=== PATIENT | female | born 1965 | race Caucasian/White ===

== ENCOUNTER → 2017-05-21 14:38 | Outpatient (CLI) | payer MEDICAID ==
[2017-05-21 17:28] LABS: CREATININE - SERUM 1.9 mg/dL (0.6-1.3); VANCOMYCIN - TROUGH 7.2 ug/mL (10.0-20.0)
== END | disposition home or self-care (01) ==
LOC: D.LABREF 14:38
PROVIDERS: Orthopaedic Surgery
DX: Z79.2 Long term (current) use of antibiotics (principal)

== ENCOUNTER → 2017-08-08 14:11 | Outpatient (CLI) | payer MEDICAID ==
[2017-08-08 15:26] LABS: BASOPHILS 0.6 % (0-2); EOSINOPHILS 0.9 % (0-7); HEMATOCRIT 36.4 % (36.0-48.0); IMMATURE GRANULOCYTES 0.1 % (0-5); LYMPHOCYTES 28.1 % (15-50); MCH 26.3 pg (26.0-34.0); MCHC 30.2 g/dL (31.0-37.0); MCV 87.1 fL (80.0-100.0); MEAN PLATELET VOLUME 8.5 fL (7.4-10.4); MONOCYTES 8.6 % (2-11); NEUTROPHILS 61.7 % (40-80); PLATELET COUNT 410 10x3/uL (130-400); RBC 4.18 10x6/uL (4.00-5.40); RDW 18.4 % (11.5-14.5); WBC 8.9 10x3/uL (4.8-10.8)
[2017-08-08 16:39] LABS: ERYTHROCYTE SEDIMENTATION RATE 90 mm/hr (0-30)
== END | disposition home or self-care (01) ==
LOC: D.LAB 14:11
PROVIDERS: Student in an Organized Health Care Education/Training Program
DX: T84.50XA Infection and inflammatory reaction due to unspecified internal joint prosthesis, initial encounter (principal); Z51.81 Encounter for therapeutic drug level monitoring; Z79.2 Long term (current) use of antibiotics; A49.02 Methicillin resistant Staphylococcus aureus infection, unspecified site

== ENCOUNTER → 2017-08-24 10:37 | Outpatient (CLI) | payer MEDICAID | END | disposition home or self-care (01) | LOC: D.LABREF 10:37 | DX: J02.9 Acute pharyngitis, unspecified (principal) ==